=== PATIENT | female | born 1985 | race Caucasian/White ===

== ENCOUNTER 2018-09-25 14:04 | Emergency (ER) | payer MEDICAID ==
[~2018-09-25] VITALS: Ht 157.5 cm; Wt 60.3 kg
[2018-09-25 14:07] VITALS: BP 135/81; PULSE 89; RESP 16; Ht 157.5 cm; Wt 60.3 kg
[2018-09-25] MEDS ORDERED: KETOROLAC 60 MG INJ IM STA (16:54)
[2018-09-25] MEDS ORDERED: DIPHENHYDRAMINE 50 MG CAP PO ONE (17:00)
[2018-09-25] MEDS ORDERED: IBUP-1542 PO (17:15)
[2018-09-25] MEDS ORDERED: BEN50 PO (17:15)
--- NOTE | 2018-09-25 17:19 | ERD ---
ER Documentation Chief Complaint Chief Complaint body rash since yesterday HPI 32-year-old female presents with complaint of fevers, and body rash since yesterday. Patient states that the rash itches. Denies any treatments. Patient states she is up-to-date on her vaccines. Denies cough, sore throat, wheezing, dyspnea, stridor, inability to swallow, drooling, neck stiffness, photophobia, nausea, vomiting, diarrhea, night sweats, recent weight loss, fatigue. ROS All systems reviewed and are negative except as per history of present illness. Medications Home Meds Active Scripts Ibuprofen* (Motrin*) 600 Mg Tab, 600 MG PO Q6H PRN for PAIN AND OR ELEVATED TEMP, #30 TAB Prov:ISMAEL BAH 09/25/18 Diphenhydramine Hcl* (Benadryl*) 50 Mg Cap, 50 MG PO Q6H PRN for ITCHING/RASH, #30 CAP Prov:ISMAEL BAH 09/25/18 Allergies Allergies: Coded Allergies: No Known Drug Allergy (Verified Allergy, Unknown, 12/15/14) PMhx/Soc History of Surgery: No Anesthesia Reaction: No Hx Neurological Disorder: No Hx Respiratory Disorders: No Hx Cardiac Disorders: No Hx Psychiatric Problems: No Hx Miscellaneous Medical Probl: No Hx Alcohol Use: No Hx Substance Use: No Hx Tobacco Use: No FmHx Family History: No diabetes, No coronary disease, No other Physical Exam Vitals Vital Signs Date Temp Pulse Resp B/P (MAP) Pulse Ox O2 O2 Flow FiO2 Time Delivery Rate 09/25/18 99.0 89 16 135/81 99 14:07 (99) Physical Exam Const: No acute distress Head: Atraumatic Eyes: Normal Conjunctiva ENT: Normal External Ears, Nose and Mouth. Airways patent and clear without angioedema or tongue edema. Neck: Full range of motion. No meningismus. Resp: Clear to auscultation bilaterally Cardio: Regular rate and rhythm, no murmurs Abd: Soft, non tender, non distended. Normal bowel sounds Skin: Vesicular lesions on erythematous base noted diffusely. There is no petechiae. Back: No midline or flank tenderness Ext: No cyanosis, or edema Neur: Awake and alert Psych: Normal Mood and Affect Results 24 hrs Laboratory Tests Test 09/25/18 17:13 POC Beta HCG, Qualitative NEGATIVE Current Medications Medications Dose Sig/Vianey Start Time Status Last (Trade) Ordered Route PRN Stop Time Admin Dose Reason Admin 50 mg ONCE ONCE 09/25/18 DC 09/25/18 Diphenhydrami PO 17:00 17:15 ne HCl 09/25/18 17:01 (Benadryl) Ketorolac 60 mg ONCE STAT 09/25/18 DC Tromethamine IM 16:54 (Toradol) 09/25/18 16:56 Procedures/MDM MDM: Patient's presentation consistent with viral exanthem, possibly chickenpox. Patient was given Benadryl and Toradol in the ER and sent home with prescription for ibuprofen and Benadryl. Patient showed no signs of respiratory distress, wheezing, angioedema, or any other concerning signs for allergic reaction. Low suspicion for Kawasaki disease, scarlet fever, necrotizing fasciitis, sepsis, gangrene, Shan-Tevin syndrome, toxic epidural necrolysis, abscess, cellulitis, anaphylaxis, allergic reaction. At this time, patient is stable for discharge and outpatient management. I have instructed the patient to follow-up with his/her primary care physician in 1-2 days. I have discussed with the patient the possibility of needing to see a specialist for further workup and imaging studies if symptoms persist. I have instructed the patient to promptly return to the ER for any new or worsening symptoms including but not limited to increased pain, fever, nausea, vomiting, weakness or LOC. The patient and/or family expressed understanding of and agreement with this plan. All questions were answered. Home care instructions were provided. [Communication with patient both during the exam and instructions for discharge were performed with using a meat carrier . Patient gave verbal confirmation to the practitioner, through the meat carrier, that they understood everythign that was being said to them.] DISCLAIMER: Inadvertent spelling and grammatical errors are likely due to EHR/dictation software use and do not reflect on the overall quality of patient care. Also, please note that the electronic time recorded on this note does not necessarily reflect the actual time of the patient encounter. Departure Diagnosis: Primary Impression: Chicken pox Varicella complications: without complication Qualified Codes: B01.9 - Varicella without complication Condition: Stable Patient Instructions: Chickenpox Referrals: [facility] YOU HAVE RECEIVED A MEDICAL SCREENING EXAM AND THE RESULTS INDICATE THAT YOU DO NOT HAVE A CONDITION THAT REQUIRES URGENT TREATMENT IN THE EMERGENCY DEPARTMENT. FURTHER EVALUATION AND TREATMENT OF YOUR CONDITION CAN WAIT UNTIL YOU ARE SEEN IN YOUR DOCTORS OFFICE WITHIN THE NEXT 1-2 DAYS. IT IS YOUR RESPONSIBILITY TO MAKE AN APPOINTMENT FOR FOLOW-UP CARE. IF YOU HAVE A PRIMARY DOCTOR --you should call your primary doctor and schedule an appointment IF YOU DO NOT HAVE A PRIMARY DOCTOR YOU CAN CALL OUR PHYSICIAN REFERRAL HOTLINE AT IF YOU CAN NOT AFFORD TO SEE A PHYSICIAN YOU CAN CHOSE FROM THE FOLLOWING ON LICENSE OF [facility] [address] [facility]. [facility] [address] [facility] [address] [facility] [address] [facility] [address] [facility]. [facility]. [address] Additional Instructions: FOLLOW UP WITH YOUR PRIMARY CARE PHYSICIAN TOMORROW.Return to this facility if you are not improving as expected. ISMAEL BAH Sep 25, 2018 17:19
== END 2018-09-25 17:59 | disposition home or self-care (01) ==
LOC: FTE 14:04
DX: B01.9 Varicella without complication (principal); B09 Unspecified viral infection characterized by skin and mucous membrane lesions
CPT/HCPCS: 81025; J1885; Z7610; 96372